=== PATIENT | female | born 1935 | race American Indian/Alaskan Native ===

== ENCOUNTER 2017-03-11 06:29 | Day surgery (SDC) | payer MEDICARE ==
[2017-03-11 06:58] VITALS: BMI 31.1
[2017-03-11] MEDS ORDERED: Midazolam 2 MG/2 ML VIAL ONE (07:56)
[2017-03-11] MEDS ORDERED: Propofol 10 mg/ml Inj (20 ML) ONE (07:56)
--- NOTE | 2017-03-11 08:30 | CP.SDSHP ---
Same Day Surgery H & P - History Proposed Procedure: colonoscopy Pre-Op Diagnosis: screen - Previous Medical/Surgical History Cardiac: Hypertension - Allergies Allergies: Allergies No Known Allergies Allergy (Verified 03/11/17 06:57) - Physical Exam Vital Signs: Vital Signs 03/11/17 07:25 Temperature 96.9 F L Pulse Rate 72 Respiratory 19 Rate Blood Pressure 150/75 O2 Sat by Pulse 97 Oximetry Mental Status: Alert & Oriented x3 Neuro: WNL Heart: WNL Lungs: WNL GI: WNL - {Optional Preform as Required} Abdomen: WNL - Impression Impression: screen Pt. Evaluated Today:Candidate for Anesthesia & Procedure: Yes - Date & Time Date: 03/11/17 Time: 08:10 Short Stay Discharge - Short Stay Discharge Admitting Diagnosis/Reason for Visit: ENCOUNTER FOR SCREENING FOR MALIGNANT NEOPLASM OF Disposition: HOME/ ROUTINE
[2017-03-11] MEDS ORDERED: Lactated Ringer's 500 ML IV ONE ×2 (08:34)
[2017-03-11 09:11] VITALS: TEMP 97
[2017-03-11 11:00] VITALS: BP 145/80; PULSE 82; RESP 20; O2SAT 99
== END 2017-03-11 10:30 | disposition home or self-care (01) ==
LOC: C.ENDO 06:29
PROVIDERS: ATTEND Internal Medicine Gastroenterology
DX: K57.90 Diverticulosis of intestine, part unspecified, without perforation or abscess without bleeding (principal); I10 Essential (primary) hypertension
CPT/HCPCS: 45378; J2250; J2704; J7120

== ENCOUNTER 2017-06-30 08:39 | Emergency (ER) | payer MEDICARE ==
[2017-06-30 08:39] VITALS: BMI 31.1
--- NOTE | 2017-06-30 10:03 | RAD ---
PROCEDURE: Radiographs of the Sacrum and Coccyx HISTORY: PAIN AFTER FALL COMPARISON: None available. TECHNIQUE: Frontal and lateral views of the sacrum and coccyx FINDINGS: BONES: Sacrum and coccyx unremarkable. No fracture or focal lesion. SACROILIAC JOINTS: Unremarkable. OTHER FINDINGS: None. IMPRESSION: Unremarkable radiographs of the sacrum and coccyx.
--- NOTE | 2017-06-30 10:04 | RAD ---
PROCEDURE: Radiographs of the pelvis and bilateral hips HISTORY: PAIN AFTER FALL COMPARISON: None. FINDINGS: BONES: Pelvis: Unremarkable. Right hip:Unremarkable. Left hip:Unremarkable. JOINTS: Right hip: Unremarkable. Left hip: Unremarkable. Sacroiliac Joints: Unremarkable. Pubic symphysis: Unremarkable. SOFT TISSUES: Normal. OTHER FINDINGS: None. IMPRESSION: Unremarkable radiographs of the hips and pelvis.
[2017-06-30] MEDS ORDERED: Naproxen 550 mg Tab PO STA (10:10)
--- NOTE | 2017-06-30 10:12 | C.PDOC ---
History Of Present Illness 81-year-old female presents to the emergency department S/P fall for evaluation of buttock pain. [place], leaning on a trash can, when she slipped and fell on her buttocks. She denies head injury, chest pain, dizziness, palpitations, SOB, abdominal pain, sensory changes. Time Seen by Provider: 06/30/17 08:43 Chief Complaint (Nursing): Medical Clearance History Per: Patient History/Exam Limitations: no limitations Onset/Duration Of Symptoms: Other (prior to arrival) Current Symptoms Are (Timing): Still Present Severity: Mild Past Medical History Reviewed: Historical Data, Nursing Documentation Vital Signs: Last Vital Signs Temp 97.6 F 06/30/17 10:26 Pulse 70 06/30/17 10:26 Resp 20 06/30/17 10:26 BP 126/78 06/30/17 10:26 Pulse Ox 96 06/30/17 10:34 - Medical History PMH: Arthritis, CAD, Colonic Polyps, Depression, Gastritis, HTN Surgical History: Endoscopy - [facility] Procedures COLONOSCOPY (08/26/14) CYSTOSCOPY NEC (12/14/13) ENDOSC POLYPECTOMY OF LG INTEST (06/09/04) LAPAROSCOPIC ROBOTIC ASSISTED PROCEDURE (12/14/13) VAGINAL SUSPENS & FIXAT (12/14/13) Family History: States: Diabetes - Social History Hx Tobacco Use: No Hx Alcohol Use: No Hx Substance Use: No - Immunization History Hx Tetanus Toxoid Vaccination: No Hx Influenza Vaccination: No Hx Pneumococcal Vaccination: No Review Of Systems Except As Marked, All Systems Reviewed And Found Negative. Constitutional: Negative for: Fever, Chills Cardiovascular: Negative for: Chest Pain, Palpitations Respiratory: Negative for: Shortness of Breath Gastrointestinal: Negative for: Nausea, Vomiting, Abdominal Pain, Diarrhea Musculoskeletal: Positive for: Other (buttock pain). Negative for: Back Pain Skin: Negative for: Rash Neurological: Negative for: Weakness, Numbness, Headache, Dizziness Physical Exam - Physical Exam Appears: Well, Non-toxic, No Acute Distress Skin: Warm, Dry, No Rash Head: Atraumatic, Normacephalic Eye(s): bilateral: Normal Inspection, PERRL, EOMI Oral Mucosa: Moist Neck: Normal, Normal ROM, No Midline Cervical Tenderness, No Paracervical Tenderness, No Step Off Deformity, Supple Cardiovascular: Rhythm Regular Respiratory: Normal Breath Sounds, No Rales, No Rhonchi, No Wheezing Gastrointestinal/Abdominal: Normal Exam, Bowel Sounds, Soft, No Tenderness Back: Other ((+)tenderness to palpation at coccygeal area. Hips are nontender with normal ROM. ) Extremity: Normal ROM, No Pedal Edema, No Calf Tenderness, Capillary Refill (< 2 sec all digits ), No Deformity, No Swelling Extremity: Bilateral: Normal Color And Temperature, Normal ROM Pulses: Left Dorsalis Pedis: Normal, Right Dorsalis Pedis: Normal Neurological/Psych: Oriented x3, Normal Motor, Normal Sensation Gait: Steady ED Course And Treatment O2 Sat by Pulse Oximetry: 96 (on RA) Pulse Ox Interpretation: Normal - Other Rad HIPS/PELVIS XRAY X-Ray: Viewed By Me, Read By Radiologist Interpretation: Accession No. : [id number]. Patient Name / ID : AKILAH GONZALES / [id number]. Exam Date : 06/30/2017 09:33:29 ( Approved ). Study Comment : Sex / Age : F / 81Y. Creator : Jovi Cotto MD. Dictator : Jovi Cotto MD. Retrimmer : Fence Erector : Jovi Cotto MD. Approver2 : Report Date : 06/30/2017 10:02:49. My Comment : . PROCEDURE: Radiographs of the pelvis and bilateral hips. HISTORY: PAIN AFTER FALL. COMPARISON: None. FINDINGS: BONES: Pelvis: Unremarkable. Right hip: Unremarkable. Left hip:Unremarkable. JOINTS: Right hip: Unremarkable. Left hip: Unremarkable. Sacroiliac Joints: Unremarkable. Pubic symphysis: Unremarkable. SOFT TISSUES: Normal. OTHER FINDINGS: None. IMPRESSION: Unremarkable radiographs of the hips and pelvis. SACRUM/COCCYX XRAY X-Ray: Viewed By Me, Read By Radiologist Interpretation: Accession No. : [id number]. Patient Name / ID : AKILAH GONZALES / [id number]. Exam Date : 06/30/2017 09:41:44 ( Approved ). Study Comment : Sex / Age : F / 81Y. Creator : Jovi Cotto MD. Dictator : Jovi Cotto MD. Retrimmer : Fence Erector : Jovi Cotto MD. Approver2 : Report Date : 06/30/2017 10:02:14. My Comment : . PROCEDURE: Radiographs of the Sacrum and Coccyx. HISTORY: PAIN AFTER FALL. COMPARISON : None available. TECHNIQUE: Frontal and lateral views of the sacrum and coccyx. FINDINGS: BONES: Sacrum and coccyx unremarkable. No fracture or focal lesion. SACROILIAC JOINTS: Unremarkable. OTHER FINDINGS: None. IMPRESSION: Unremarkable radiographs of the sacrum and coccyx. Progress Note: Patient given PO tylenol. X-Rays of hips/pelvis, sacrum/coccyx ordered/reviewed. 10:35- Patient states she feels better and pain has resolved. She is ambulating normally in ED. Xrays (-) for fractures/acute bony injury. Patient given Rxs for naprosyn and flexeril, and instructed to follow up with PMD/clinic in 1-2 days. She understands she should return to ED if symptoms worsen. Reevaluation Time: 10:10 Reassessment Condition: Improved (Patient reassessed, states her pain has improved but still present mildly. PO Naprosyn given.) Disposition Counseled Patient/Family Regarding: Studies Performed, Diagnosis, Need For Followup, Rx Given - Disposition Referrals: Isabel Suarez MD [Staff Provider] - Disposition: HOME/ ROUTINE Disposition Time: 10:35 Condition: STABLE Additional Instructions: FOLLOW UP WITH YOUR DOCTOR IN 1-2 DAYS USE MEDICATIONS NEEDED RETURN TO ER IF SYMPTOMS WORSEN Prescriptions: Cyclobenzaprine [Cyclobenzaprine HCl] 10 mg PO BID PRN #12 tab PRN Reason: pain/muscle Naproxen 375 mg PO BID PRN #20 tablet PRN Reason: pain Instructions: Coccyx Injury (ED), Acute Low Back Pain (ED) Forms: [employer] (Nepali) Print Language: SAMOAN - POA Present On Arrival: Falls Or Trauma - Clinical Impression Clinical Impression: Low back sprain, Coccyx sprain
[2017-06-30] MEDS ORDERED: Naproxen 550 mg Tab PO ONE (10:21)
[2017-06-30 10:28] VITALS: BP 126/78; PULSE 70; RESP 20; TEMP 97.6
[2017-06-30 10:33] VITALS: O2SAT 96
== END 2017-06-30 10:45 | disposition home or self-care (01) ==
LOC: C.ER 08:39
DX: S33.9XXA Sprain of unspecified parts of lumbar spine and pelvis, initial encounter (principal); S33.8XXA Sprain of other parts of lumbar spine and pelvis, initial encounter; W01.0XXA Fall on same level from slipping, tripping and stumbling without subsequent striking against object, initial encounter; I10 Essential (primary) hypertension; I25.10 Atherosclerotic heart disease of native coronary artery without angina pectoris

== ENCOUNTER 2017-09-11 13:45 | Emergency (ER) | payer MEDICARE ==
[2017-09-11 13:45] VITALS: BMI 31.1
[2017-09-11 13:53] VITALS: BP 138/82; PULSE 102; RESP 17; TEMP 97.7; O2SAT 97
--- NOTE | 2017-09-11 14:25 | C.PDOC ---
History Of Present Illness Rissa Butler is an 82 year old female, with no significant past medical history, who presents to the emergency department complaining of rash onset for x7 months. Patient was previously seen by demonstrator knitting without any major improvement. Patient states she was tested for allergies but with no improvement. She is requesting something for the itching, she has been using topical creams. She denies any fever, chills, or new medications. She has no pets or animals. PMD: None provided. Time Seen by Provider: 09/11/17 14:10 Chief Complaint (Nursing): Abnormal Skin Integrity History Per: Patient History/Exam Limitations: no limitations Onset/Duration Of Symptoms: Days (x7 months) Current Symptoms Are (Timing): Still Present Quality Of Symptoms: Itching Past Medical History Reviewed: Historical Data, Nursing Documentation, Vital Signs Vital Signs: Last Vital Signs Temp 97.7 F 09/11/17 13:53 Pulse 102 H 09/11/17 13:53 Resp 17 09/11/17 13:53 BP 138/82 09/11/17 13:53 Pulse Ox 97 09/11/17 14:27 - Medical History PMH: Arthritis, CAD, Colonic Polyps, Depression, Gastritis, HTN Denies: Fractures, Chronic Kidney Disease, TIA Surgical History: Endoscopy - [facility] Procedures COLONOSCOPY (08/26/14) CYSTOSCOPY NEC (12/14/13) ENDOSC POLYPECTOMY OF LG INTEST (06/09/04) LAPAROSCOPIC ROBOTIC ASSISTED PROCEDURE (12/14/13) VAGINAL SUSPENS & FIXAT (12/14/13) Family History: States: Unknown Family Hx, Diabetes - Social History Hx Tobacco Use: No Hx Alcohol Use: No Hx Substance Use: No - Immunization History Hx Tetanus Toxoid Vaccination: No Hx Influenza Vaccination: No Hx Pneumococcal Vaccination: No Review Of Systems Constitutional: Negative for: Fever, Chills Skin: Positive for: Rash Physical Exam - Physical Exam Appears: No Acute Distress Skin: Normal Color, Warm, Dry, Rash (macular excoriated rash with some small breaks in the skin.) Head: Atraumatic, Normacephalic Eye(s): bilateral: Normal Inspection, PERRL, EOMI Neck: Normal ROM, Supple Chest: Symmetrical Cardiovascular: Rhythm Regular, No Murmur Respiratory: Normal Breath Sounds, No Wheezing Gastrointestinal/Abdominal: Normal Exam, Soft, No Tenderness Back: Normal Inspection, No CVA Tenderness Extremity: Normal ROM, No Deformity, No Swelling Neurological/Psych: Oriented x3 ED Course And Treatment O2 Sat by Pulse Oximetry: 97 (RA) Pulse Ox Interpretation: Normal Medical Decision Making Medical Decision Making: Initial Impression: Skin rash Initial Plan: -Antibiotics for excoriated regions as well as Claritin for itching. Advised to follow up with demonstrator knitting in area provided by resource for patient. 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 I have reviewed the chart and agree that the record accurately reflects my personal performance of the history, physical exam, medical decision making, and the department course for this patient. I have also personally directed, reviewed, and agree with the discharge instructions and disposition.
== END 2017-09-11 14:41 | disposition home or self-care (01) ==
LOC: C.ER 13:45
DX: R21 Rash and other nonspecific skin eruption (principal); I10 Essential (primary) hypertension; I25.10 Atherosclerotic heart disease of native coronary artery without angina pectoris